=== PATIENT | female | born 1985 | race American Indian/Alaskan Native ===

== ENCOUNTER 2016-12-07 22:35 | Emergency (ER) | payer SELFPAY ==
[2016-12-07 23:32] VITALS: BP 137/93
[2016-12-07] MEDS ORDERED: MOTRIN PO ONE (23:32)
[2016-12-08] MEDS ORDERED: CLEOCIN IM ONE (01:36)
[2016-12-08] MEDS ORDERED: NORCO 5/325 PO ONE (01:36)
--- NOTE | 2016-12-08 01:36 | Emergency Department Report ---
- General Chief complaint: Skin/Abscess/Foreign Body Stated complaint: INFECTION ON ARM Time Seen by Provider: 12/08/16 01:35 Source: patient, family Mode of arrival: Ambulatory Limitations: No Limitations - History of Present Illness Initial comments: Patient here reported that she her right forearm is infected after getting tattoos 1 week ago. She says she has red swollen areas to her forearm tattoo site at the back of her forearm at her elbow and on her right arm. Denies any fever or chills. Pain is 10 out of 10. Denies any nausea vomiting. Denies any numbness or tingling to extremities. Denies any pain to her fingers or wrist. She said the pain is localized to the infected site. MD complaint: abscess/boil Onset/Timin -: week(s) Tetanus Up to Date: yes Location: RUE Severity: severe Severity scale (0 -10): 10 Quality: stabbing, aching Consistency: intermittent Improves with: immobilization, rest Context: other ([place]) Associated symptoms: athralgias Treatments Prior to Arrival: OTC topical medication - Related Data Previous Rx's Medication Instructions Recorded Last Taken Type Gentamicin 0.3% Ophth Soln 1 drops OP Q4H #1 bottle 11/26/13 Unknown Rx Ketoconazole [Nizoral] 120 ml TP BID #1 bottle 11/26/13 Unknown Rx Prednisone [Prednisone 5 mg (6-Day 5 mg PO .TAPER #1 tab.ds.pk 11/26/13 Unknown Rx Pack, 21 Tabs)] Promethazine [Phenergan] 25 mg PO Q6H PRN #20 tablet 05/11/14 Unknown Rx Ibuprofen [Motrin 800 MG tab] 800 mg PO Q6H PRN #30 tablet 01/09/15 Unknown Rx oxyCODONE /ACETAMINOPHEN [Percocet 1 tab PO Q4HR #30 tablet 01/09/15 Unknown Rx 5/325 mg] Acetaminophen/Codeine [Tylenol #3] 1 tab PO Q6H PRN #12 tab 12/08/16 Unknown Rx Ibuprofen [Motrin] 600 mg PO Q8H PRN #21 tablet 12/08/16 Unknown Rx Sulfamethoxazole/Trimethoprim 1 each PO BID #20 tablet 12/08/16 Unknown Rx [Bactrim DS TAB] Allergies Allergy/AdvReac Type Severity Reaction Status Date / Time No Known Allergies Allergy Verified 11/13/14 21:43 Abscess Boil HPI - HPI Chief Complaint: Skin/Abscess/Foreign Body Stated Complaint: INFECTION ON ARM Time Seen by Provider: 12/08/16 01:35 Home Medications: Previous Rx's Medication Instructions Recorded Last Taken Type Gentamicin 0.3% Ophth Soln 1 drops OP Q4H #1 bottle 11/26/13 Unknown Rx Ketoconazole [Nizoral] 120 ml TP BID #1 bottle 11/26/13 Unknown Rx Prednisone [Prednisone 5 mg (6-Day 5 mg PO .TAPER #1 tab.ds.pk 11/26/13 Unknown Rx Pack, 21 Tabs)] Promethazine [Phenergan] 25 mg PO Q6H PRN #20 tablet 05/11/14 Unknown Rx Ibuprofen [Motrin 800 MG tab] 800 mg PO Q6H PRN #30 tablet 01/09/15 Unknown Rx oxyCODONE /ACETAMINOPHEN [Percocet 1 tab PO Q4HR #30 tablet 01/09/15 Unknown Rx 5/325 mg] Acetaminophen/Codeine [Tylenol #3] 1 tab PO Q6H PRN #12 tab 12/08/16 Unknown Rx Ibuprofen [Motrin] 600 mg PO Q8H PRN #21 tablet 12/08/16 Unknown Rx Sulfamethoxazole/Trimethoprim 1 each PO BID #20 tablet 12/08/16 Unknown Rx [Bactrim DS TAB] Allergies/Adverse Reactions: Allergies Allergy/AdvReac Type Severity Reaction Status Date / Time No Known Allergies Allergy Verified 11/13/14 21:43 ED Review of Systems ROS: Stated complaint: INFECTION ON ARM Other details as noted in HPI Comment: All other systems reviewed and negative Constitutional: denies: chills, fever ENT: denies: congestion Respiratory: no symptoms reported Cardiovascular: denies: chest pain, palpitations, edema, syncope Gastrointestinal: denies: abdominal pain, nausea, vomiting Musculoskeletal: arthralgia. denies: back pain, joint swelling Skin: other (redness swelling , pain RFA and ARM) Neurological: denies: headache, weakness, numbness, paresthesias, confusion, vertigo ED Past Medical Hx - Past Medical History Previous Medical History?: Yes Hx Hypertension: No Hx Congestive Heart Failure: No Hx Diabetes: No Hx Deep Vein Thrombosis: No Hx Renal Disease: No Hx Sickle Cell Disease: No Hx Headaches / Migraines: Yes Hx Seizures: No Hx Asthma: No Hx COPD: No Hx HIV: No - Surgical History Past Surgical History?: Yes Additional Surgical History: csection - Family History Family history: hypertension - Social History Smoking Status: Never Smoker Substance Use Type: None - Medications Home Medications: Home Medications Medication Instructions Recorded Confirmed Last Taken Type Gentamicin 0.3% Ophth Soln 1 drops OP Q4H #1 bottle 11/26/13 01/09/15 Unknown Rx Ketoconazole [Nizoral] 120 ml TP BID #1 bottle 11/26/13 01/09/15 Unknown Rx Prednisone [Prednisone 5 mg (6-Day 5 mg PO .TAPER #1 tab.ds.pk 11/26/13 Unknown Rx Pack, 21 Tabs)] Promethazine [Phenergan] 25 mg PO Q6H PRN #20 tablet 05/11/14 01/09/15 Unknown Rx Ibuprofen [Motrin 800 MG tab] 800 mg PO Q6H PRN #30 tablet 01/09/15 Unknown Rx oxyCODONE /ACETAMINOPHEN [Percocet 1 tab PO Q4HR #30 tablet 01/09/15 Unknown Rx 5/325 mg] Acetaminophen/Codeine [Tylenol #3] 1 tab PO Q6H PRN #12 tab 12/08/16 Unknown Rx Ibuprofen [Motrin] 600 mg PO Q8H PRN #21 tablet 12/08/16 Unknown Rx Sulfamethoxazole/Trimethoprim 1 each PO BID #20 tablet 12/08/16 Unknown Rx [Bactrim DS TAB] ED Physical Exam - General Limitations: No Limitations General appearance: alert, in no apparent distress - Head Head exam: Present: atraumatic, normocephalic, normal inspection - Eye Eye exam: Present: normal appearance, PERRL, EOMI. Absent: periorbital swelling , periorbital tenderness Pupils: Present: normal accommodation - Neck Neck exam: Present: normal inspection, full ROM. Absent: tenderness, lymphadenopathy - Respiratory Respiratory exam: Present: normal lung sounds bilaterally. Absent: respiratory distress, chest wall tenderness - Cardiovascular Cardiovascular Exam: Present: regular rate, normal rhythm, normal heart sounds - GI/Abdominal GI/Abdominal exam: Present: soft, normal bowel sounds. Absent: distended, tenderness, guarding, rebound, rigid - Back Exam Back exam: Present: normal inspection, full ROM. Absent: tenderness, CVA tenderness (R), CVA tenderness (L), muscle spasm, paraspinal tenderness, vertebral tenderness, rash noted - Neurological Exam Neurological exam: Present: alert, oriented X3, normal gait. Absent: motor sensory deficit, reflexes normal - Psychiatric Psychiatric exam: Present: normal affect, normal mood - Skin Skin exam: Present: warm, dry, rash, erythema - Expanded Skin Exam Expanded Type of lesion: Present: other (cellulitis/pustules) Distribution of rash: RUE ( quarter size to mid anterior RT arm, Dime zise RAC. Small pustules in anterior FA. Lateral outer arm and posterior fore arm with quarter size area) Description of rash: Present: tenderness, erythematous, indurated, other ( opening to centers of cellulitic areas). Absent: discharge, fluctuant ED Course Vital Signs 12/07/16 12/08/16 12/08/16 23:26 00:40 01:57 Temperature 98.4 F Pulse Rate 80 Respiratory 18 18 18 Rate Blood Pressure 137/93 Blood Pressure 137/93 [Left] O2 Sat by Pulse 100 Oximetry - Reevaluation(s) Reevaluation #1: 12/08/16 02:37 Patient given [place] 2 tablets accessory 25 mg in emergency room. Tetanus vaccine is up-to-date and she was given clindamycin 600 mg IM and emergency room. Shee was also given Motrin 800 mg prior to [place] but she still remaining pain. After [place] for pain has decreased. 12/08/16 02:38 ED Medical Decision Making - Medical Decision Making ED course: Patient here with skin infection from getting tattoo a week ago. She is found to have cellulitis to her right forearm, arm multiple pustules to her right forearm at tattoo site. She was initially given Motrin 800 mg in emergency room which did not relieve the pain so she was given [place] 5/325 2 tablets in ED along with clindamycin 600 mg IV for cellulitis. Patient is stable I discussed with Pt her diagnosis and treatment plan. She voices understanding. Patient discharged home with prescription for Bactrim, Tylenol 3 and Motrin. Critical care attestation.: If time is entered above; I have spent that time in minutes in the direct care of this critically ill patient, excluding procedure time. ED Disposition Clinical Impression: Skin pustule, Cellulitis of right upper extremity Disposition: DISCHARGED TO HOME OR SELFCARE Is pt being admited?: No Does the pt Need Aspirin: No Condition: Stable Instructions: Cellulitis (ED) Additional Instructions: Take antibiotic as prescribed. If you developing fever, cellulitis to upper extremity increasing in redness and size please return to emergency room [facility]. Follow up with primary care physician and if you do not have one to follow-up with outside Medical Center in 2-3 days. Prescriptions: Acetaminophen/Codeine [Tylenol #3] 1 tab PO Q6H PRN #12 tab PRN Reason: Pain Ibuprofen [Motrin] 600 mg PO Q8H PRN #21 tablet PRN Reason: Pain Sulfamethoxazole/Trimethoprim [Bactrim DS TAB] 1 each PO BID #20 tablet Referrals: [facility] [Outside] - 2-3 Days Forms: Work/School Release Form(ED)
== END 2016-12-08 02:52 | disposition home or self-care (01) ==
LOC: ED 22:35
DX: L08.9 Local infection of the skin and subcutaneous tissue, unspecified (principal); L03.113 Cellulitis of right upper limb; G43.909 Migraine, unspecified, not intractable, without status migrainosus
CPT/HCPCS: 96372; 99282

== ENCOUNTER 2018-05-19 07:04 | Emergency (ER) | payer SELFPAY ==
[2018-05-19 07:17] VITALS: BP 123/81
[2018-05-19 07:59] LABS: Bilirubin,Urine SM (Negative); Blood,Urine NEG (Negative); Color,Urine Amber (Yellow); Mucus,Urine 3+ /HPF
[2018-05-19 08:02] LABS: HCG Qualitative,Urine Negative (Negative)
[2018-05-19 08:04] LABS: Ictotest,Urine Negative (Negative)
--- NOTE | 2018-05-19 08:12 | Emergency Department Report ---
ED Female HPI - General Chief complaint: Urogenital-Female Stated complaint: VAGINAL ODOR Source: patient Mode of arrival: Ambulatory Limitations: No Limitations - History of Present Illness Initial comments: This is a 32-year-old -Citizen Of [place] female who presents with vaginal odor for 2 days. Patient denies recent exposures to STDs. Patient states the only unusual thing is eating fish 2 days ago when the smell and fell older every since. Patient denies vaginal discharge, dysuria, frequency, urgency, abdominal pain, and fever. MD Complaint: other (a vaginal odor) Onset/Timin -: days(s) Severity: mild Severity scale (0 -10): 0 Consistency: constant Improves with: none Worsens with: none Are you Now?: No Last Menstrual Period: 05/03/18 EDC: 02/07/19 Associated Symptoms: denies other symptoms - Related Data Sexually active: Yes Previous Rx's Medication Instructions Recorded Last Taken Type Gentamicin 0.3% Ophth Soln 1 drops OP Q4H #1 bottle 11/26/13 Unknown Rx Ketoconazole [Nizoral] 120 ml TP BID #1 bottle 11/26/13 Unknown Rx Prednisone [Prednisone 5 mg (6-Day 5 mg PO .TAPER #1 tab.ds.pk 11/26/13 Unknown Rx Pack, 21 Tabs)] Promethazine [Phenergan] 25 mg PO Q6H PRN #20 tablet 05/11/14 Unknown Rx Ibuprofen [Motrin 800 MG tab] 800 mg PO Q6H PRN #30 tablet 01/09/15 Unknown Rx oxyCODONE /ACETAMINOPHEN [Percocet 1 tab PO Q4HR #30 tablet 01/09/15 Unknown Rx 5/325 mg] Acetaminophen/Codeine [Tylenol #3] 1 tab PO Q6H PRN #12 tab 12/08/16 Unknown Rx Ibuprofen [Motrin] 600 mg PO Q8H PRN #21 tablet 12/08/16 Unknown Rx Sulfamethoxazole/Trimethoprim 1 each PO BID #20 tablet 12/08/16 Unknown Rx [Bactrim DS TAB] metroNIDAZOLE [Metronidazole] 500 mg PO BID #14 tablet 05/19/18 Unknown Rx Allergies Allergy/AdvReac Type Severity Reaction Status Date / Time No Known Allergies Allergy Verified 05/19/18 07:12 ED Review of Systems ROS: Stated complaint: VAGINAL ODOR Other details as noted in HPI Constitutional: denies: chills, fever Respiratory: denies: cough, shortness of breath, wheezing Cardiovascular: denies: chest pain, palpitations Gastrointestinal: denies: abdominal pain, nausea, diarrhea Genitourinary: other (malodorous). denies: urgency, dysuria, discharge Musculoskeletal: denies: back pain, joint swelling, arthralgia Skin: denies: rash, lesions Neurological: denies: headache, weakness, paresthesias ED Past Medical Hx - Past Medical History Hx Hypertension: No Hx Congestive Heart Failure: No Hx Diabetes: No Hx Deep Vein Thrombosis: No Hx Renal Disease: No Hx Sickle Cell Disease: No Hx Headaches / Migraines: Yes Hx Seizures: No Hx Asthma: No Hx COPD: No Hx HIV: No - Surgical History Additional Surgical History: csection - Social History Smoking Status: Never Smoker Substance Use Type: None - Medications Home Medications: Home Medications Medication Instructions Recorded Confirmed Last Taken Type Gentamicin 0.3% Ophth Soln 1 drops OP Q4H #1 bottle 11/26/13 01/09/15 Unknown Rx Ketoconazole [Nizoral] 120 ml TP BID #1 bottle 11/26/13 01/09/15 Unknown Rx Prednisone [Prednisone 5 mg (6-Day 5 mg PO .TAPER #1 tab.ds.pk 11/26/13 Unknown Rx Pack, 21 Tabs)] Promethazine [Phenergan] 25 mg PO Q6H PRN #20 tablet 05/11/14 01/09/15 Unknown Rx Ibuprofen [Motrin 800 MG tab] 800 mg PO Q6H PRN #30 tablet 01/09/15 Unknown Rx oxyCODONE /ACETAMINOPHEN [Percocet 1 tab PO Q4HR #30 tablet 01/09/15 Unknown Rx 5/325 mg] Acetaminophen/Codeine [Tylenol #3] 1 tab PO Q6H PRN #12 tab 12/08/16 Unknown Rx Ibuprofen [Motrin] 600 mg PO Q8H PRN #21 tablet 12/08/16 Unknown Rx Sulfamethoxazole/Trimethoprim 1 each PO BID #20 tablet 12/08/16 Unknown Rx [Bactrim DS TAB] metroNIDAZOLE [Metronidazole] 500 mg PO BID #14 tablet 05/19/18 Unknown Rx ED Physical Exam - General Limitations: No Limitations General appearance: alert, in no apparent distress - Respiratory Respiratory exam: Present: normal lung sounds bilaterally. Absent: respiratory distress - Cardiovascular Cardiovascular Exam: Present: regular rate, normal rhythm. Absent: systolic murmur, diastolic murmur, rubs, gallop - GI/Abdominal GI/Abdominal exam: Present: soft, normal bowel sounds - External exam: Present: normal external exam Speculum exam: Present: vaginal discharge (malodorous white discharge). Absent : erythema, cervical discharge, vaginal bleeding, foreign body, tissue, laceration Bi-manual exam: Present: normal bi-manual exam - Back Exam Back exam: Present: normal inspection. Absent: CVA tenderness (R), CVA tenderness (L) - Neurological Exam Neurological exam: Present: alert, oriented X3 - Psychiatric Psychiatric exam: Present: normal affect, normal mood - Skin Skin exam: Present: warm, dry, intact, normal color. Absent: rash ED Course Vital Signs 05/19/18 07:13 Temperature 98.3 F Pulse Rate 74 Respiratory 18 Rate Blood Pressure 123/81 O2 Sat by Pulse 100 Oximetry ED Medical Decision Making - Lab Data Lab Results 05/19/18 Range/Units 07:21 Urine Color Sandrine (Yellow) Urine Turbidity Slightly-cloudy (Clear) Urine pH 5.0 (5.0-7.0) Ur Specific [place] 1.030 (1.003-1.030) Urine Protein 30 mg/dl (Negative) mg/dL Urine Glucose (UA) Neg (Negative) mg/dL Urine Ketones Neg (Negative) mg/dL Urine Blood Neg (Negative) Urine Nitrite Neg (Negative) Urine Bilirubin Sm (Negative) Urine Ictotest Negative (Negative) Urine Urobilinogen 2.0 (<2.0) mg/dL Ur Leukocyte Esterase Tr (Negative) Urine WBC (Auto) 8.0 H (0.0-6.0) /HPF Urine RBC (Auto) 3.0 (0.0-6.0) /HPF U Epithel Cells (Auto) 11.0 (0-13.0) /HPF Urine Mucus 3+ /HPF Urine HCG, Qual Negative (Negative) - Medical Decision Making Patient was examined by myself in fast track. Vitals are stable and in no acute distress. Labs obtained. Wet prep obtained via wet prep, positive clue cells, negative Trichomonas and yeast. Patient given metronidazole 500 mg by mouth once while in ER. Start Metronidazole 500 mg by mouth twice a day 7 days for bacterial vaginitis. Discharged home in stable condition. Discussed prevention options. F/U with PCP or Health Department. Critical care attestation.: If time is entered above; I have spent that time in minutes in the direct care of this critically ill patient, excluding procedure time. ED Disposition Clinical Impression: Vaginal odor, Bacterial vaginitis Disposition: TO HOME OR SELFCARE Is pt being admited?: No Does the pt Need Aspirin: No Condition: Stable Instructions: Bacterial Vaginosis (ED) Additional Instructions: Avoid drinking alcohol while taking antibiotics and for 24 hours after completion. Continue safe sexual intercourse. Follow up with Primary Care Provider or health department. Prescriptions: metroNIDAZOLE [Metronidazole] 500 mg PO BID #14 tablet Referrals: [facility] [Outside] - 3-5 Days [facility] [Outside] - 3-[address] [facility] [Outside] - 3-5 Days Forms: STI Treatment and Prevention Time of Disposition: 09:17 Print Language: MALAWIAN
[2018-05-19] MEDS ORDERED: FLAGYL PO ONE (09:15)
== END 2018-05-19 09:39 | disposition home or self-care (01) ==
LOC: ED 07:04
DX: N76.0 Acute vaginitis (principal); B96.89 Other specified bacterial agents as the cause of diseases classified elsewhere; G43.909 Migraine, unspecified, not intractable, without status migrainosus
CPT/HCPCS: 81001; 81025; 87210; 99284

== ENCOUNTER 2020-12-25 13:34 | Emergency (ER) | payer SELFPAY ==
[2020-12-25 14:30] VITALS: BP 124/82
--- NOTE | 2020-12-25 15:29 | Emergency Department Report ---
Chief Complaint: Urogenital-Female Stated Complaint: POSS STD - HPI History of Present Illness: 35-year-old -[place] female presents to the emergency room complaining of vaginal discharge x1 week. Patient states that she has a new partner and had unprotected intercourse. Patient denies any abdominal pain, denies any pelvic pain, no nausea no vomiting no dysuria. Denies any fever no chills no shortness of breath or chest pain. Her last menstrual period was 12/17/2020. 2 pa ra 2. She does have a RN ORTHOP[facility]EDICS at [facility] - Exam Vital Signs: Vital Signs 12/25/20 14:29 Temperature 98.4 F Pulse Rate 70 Respiratory 18 Rate Blood Pressure 124/82 [Right] O2 Sat by Pulse 100 Oximetry Physical Exam: General: Awake, appropriately interactive, no acute distress. Neck: Supple. Full range of motion intact. Cardiovascular: Normal peripheral perfusion. Pulmonary: No respiratory distress. Patient is speaking normally without use of accessory muscles. Skin: No apparent rashes or lesions. Neurological: No facial asymmetry. Speech is clear. Follows commands. Patient is alert and oriented. Abdominal/pelvic: Nontender normal bowel sounds. Musculoskeletal: Full range of motion, no crepitus. No tenderness to palpate nonerythematous no edema test appreciated. Able to bear weight and ambulate without difficulty. Distal neurovascular and motor/sensory function is intact. Psych: Cooperative. Appropriate mood and affect. MSE screening note: Focused history and physical exam performed. Due to findings the following was ordered: 35-year-old -[place] female presents to the emergency room complaining of vaginal discharge x1 week. Patient states that she has a new partner and had unprotected intercourse. Patient denies any abdominal pain, denies any pelvic pain, no nausea no vomiting no dysuria. Denies any fever no chills no shortness of breath or chest pain. Her last menstrual period was 12/17/2020. 2 para 2. She does have a RN OR[facility]OP[facility]ED[facility] at [facility]. Recommend to follow-up at [place] or your RN ORTHOPAEDICS. ED Disposition for MSE Disposition: MED SCREENING EXAM-LEFT Is pt being admited?: No Does the pt Need Aspirin: No Condition: Stable Additional Instructions: Recommend to follow-up at [place] or your RN ORTHOPAEDICS. Referrals: [facility] [Outside] - 3-5 Days [facility] [Provider Group] - 3-5 Days Forms: Work/School Release Form(ED)
== END 2020-12-25 17:29 | disposition left against medical advice (07) ==
LOC: ED 13:34
DX: N89.8 Other specified noninflammatory disorders of vagina (principal); Z53.21 Procedure and treatment not carried out due to patient leaving prior to being seen by health care provider